=== PATIENT | female | born 1950 | race Hispanic/Latino ===

== ENCOUNTER → 2017-08-07 | Day surgery (SDC) | payer OTHER ==
[2017-08-04 12:36] LABS: BASOPHILS % 0.5 % (0.0-1.0); EOSINOPHILS # (AUTO) 0.2 (0.0-0.4); EOSINOPHILS % 4.1 % (0.0-6.0); HEMATOCRIT 42.5 % (34.2-44.1); HEMOGLOBIN 14.3 g/dL (12.0-16.0); MEAN CORPUSCULAR HEMOGLOBIN 31.8 pg (28-32); MEAN CORPUSCULAR HGB CONC 33.6 g/dL (31-35); MEAN CORPUSCULAR VOLUME 94.4 fL (81-99); MONOCYTES # (AUTO) 0.4 (0.2-0.8); MONOCYTES % 7.4 % (4.4-11.3); NEUTROPHILS # (AUTO) 3.2 (2.1-6.9); NEUTROPHILS % 53.8 % (38.7-80.0); PLATELET COUNT 199 x10e3/uL (140-360); RED CELL DISTRIBUTION WIDTH 13.3 % (11.7-14.4)
--- NOTE | 2017-08-04 14:47 | Diagnostic Imaging Report ---
PROCEDURE: Frontal and lateral views of the chest. COMPARISON: 01/04/2017 INDICATIONS: PREOPERATIVE CHEST XRAY FOR HALLUX VALGUS SURGERY FINDINGS: Lines/tubes: None. Lungs: The lungs are well inflated and clear. There is no evidence of pneumonia or pulmonary edema. Pleura: There is no pleural effusion or pneumothorax. Heart and mediastinum: The heart size is at the upper limits normal. Small hiatal hernia. Bones: No acute bony abnormality. Multilevel degenerative changes of the thoracic spine. Cholecystectomy clips IMPRESSION: 1. No acute cardiopulmonary disease. Dictated by: Tate Mariscal M.D. on 08/04/2017 at 14:48 Electronically approved by: Tate Mariscal M.D. on 08/04/2017 at 14:48
[~2017-08-07] MED LIST: BETAMETHASONE DISODIUM PHOS 6 MG/ML VIAL ONE; BUPIVACAINE HCL 0.5% INJ 30 ML VIAL INJ ONE; CEFAZOLIN SOD 2 GM/D5W 50ML 50 ML IV ONE; DEXAMETHASONE SOD PHOS INJ 4 MG/ML VIAL ONE; FENTANYL CITRATE/PF 100MCG/2 ML INJ ONE; KETOROLAC TROMETHAMINE 30 MG/ML VIAL ONE; LEVOTHYROXINE50 MCG PO; LIDOCAINE HCL 2% LOCAL INJ 5 ML SDV VIAL INJ ONE; MIDAZOLAM HCL 2 MG/2 ML VIAL ONE; ONDANSETRON HCL INJ 2 MG/ML VIAL ONE; PROPOFOL IV EMULSION 10 MG/ML 20 ML VIAL ONE; SEVOFLURANE INHAL SOLN 250 ML PEN BTL ONE; SIMVASTATIN20 MG PO
--- OUTSIDE RECORDS SUMMARY | 2017-08-07 07:08 | XMS REPORT ---
Author Author [facility] Address Unknown Phone Unavailable Care Team Providers [employer] Name Role Phone CHETANYESICA MORAN Unavailable Unavailable TERE JARA Unavailable Unavailable Problems This patient has no known problems. Allergies, Adverse Reactions, Alerts This patient has no known allergies or adverse reactions. Medications This patient has no known medications. Results Test Description Test Time Test Comments Text Results Atomic Results Result Comments CHEST 2 VIEWS [place] [address] Patient Name: KAYLENE IBANEZ MR #: [id number] : 1950 Age/Sex: 67/F Req #: [id number] Adm Physician: Ordered by: MARAL ROSS MD Report #: [id number] Location: OR Room/Bed: Procedure: [id number] DX/CHEST 2 VIEWS Exam Date: 08/04/17 Exam Time: 1245 REPORT STATUS: Signed PROCEDURE: Frontal and lateral views of the chest. COMPARISON: 01/04/2017 INDICATIONS: PREOPERATIVE CHEST XRAY FOR HALLUX VALGUS SURGERY FINDINGS: Lines/tubes: None. Lungs: The lungs are well inflated and clear. There is no evidence of pneumonia or pulmonary edema. Pleura: There is no pleural effusion or pneumothorax. Heart and mediastinum: The heart size is at the upper limits normal. Small hiatal hernia. Bones: No acute bony abnormality. Multilevel degenerative changes of the thoracic spine. Cholecystectomy clips IMPRESSION: 1. No acute cardiopulmonary disease. Dictated by: Micki Mariscal M.D. on 08/04/2017 at 14:48 Electronically approved by: Micki Mariscal M.D. on 08/04/2017 at 14:48 Dictated By: MICKI MARISCAL MD [id number] Transcribed By: JOURDAN on 08/04/17 1448 COPY TO: MARAL ROSS MD CHEST 2 VIEWS [facility] [address] [place] [address] Patient Name: KAYLENE IBANEZ MR #: [id number] : 1950 Age/Sex: 66/F Req #: [id number] Adm Physician: Ordered by: TERE JARA MD Report #: [id number] Location: OR Room/Bed: Procedure: [id number] DX/CHEST 2 VIEWS Exam Date: 01/04/17 Exam Time: 1440 REPORT STATUS: Signed PROCEDURE: Frontal and lateral views of the chest. COMPARISON: 05/16/16 INDICATIONS: PRE OP CYSTIC MASS OF LEFT BREAST FINDINGS: Lines/tubes: None. Lungs: The lungs are well inflated and clear. There is no evidence of pneumonia or pulmonary edema. Pleura: There is no pleural effusion or pneumothorax. Heart and mediastinum: The heart and the mediastinum are normal. Bones: No acute bony abnormality. IMPRESSION: 1. No acute cardiopulmonary disease. Dictated by: Wilian Newman M.D. on 01/04/2017 at 15:32 Electronically approved by: Wilian Newman M.D. on 01/04/2017 at 15:32 Dictated By: WILIAN NEWMAN MD 153 Transcribed By: JOURDAN on 01/04/17 153 COPY TO: TERE JARA MD
--- NOTE | 2017-08-07 10:58 | Operative Report ---
DATE OF PROCEDURE: August 07, 2017 PREOPERATIVE DIAGNOSIS: Hallux valgus deformity, right foot. POSTOPERATIVE DIAGNOSIS: Hallux valgus deformity, right foot. PROCEDURES 1. Michael bunionectomy, right foot. 2. Trigger-point cortisone injection. 3. Intraoperative fluoroscopy. 4. Application of posterior splint. ANESTHESIA: General LMA. HEMOSTASIS: Pneumatic tourniquet, right thigh, inflated to 350 mmHg. ESTIMATED BLOOD LOSS: Less than 5 mL. MATERIALS 1. A 2.0 cortical screw. 2. A 0.045 K-wire. INJECTABLES 1. Total of 10 mL of 8:2 mixture of 2% lidocaine plain and betamethasone. 2. Ten mL of 2% lidocaine plain as a postoperative block. COMPUTER INFORMATION SCIENCE PROFESSOR: None. INDICATIONS FOR PROCEDURE: Ms. Jarrell is a pleasant female, 67 years of age, complaining of pain and discomfort associated with her right foot. She has failed conservative treatment and needs surgical intervention. Denies any reservation. Risks and complications include but are not limited to deep vein thrombosis, pulmonary embolism, soft-tissue infection, osseous infection, recurrence of deformity, avascular necrosis and others. DESCRIPTION OF PROCEDURE: Under mild sedation, she was brought to the operating room and placed on the operating room table in the supine position. Following induction and administration of general LMA anesthesia by anesthesia service, a well-padded pneumatic tourniquet was placed on the patient's right thigh. Next, the distal right lower extremity was scrubbed, prepped and draped in the usual aseptic manner. The extremity was then elevated and exsanguinated, and the tourniquet was inflated to 350 mmHg. Attention was then directed to the dorsum of the right foot where a curvilinear longitudinal incision was created about the site overlying the same. The incision was then deepened utilizing combination of sharp and blunt dissection. Once at the level of the 1st metatarsophalangeal joint capsule, a linear capsulotomy was performed. Then subperiosteal plane dissection was then carried down, exposing the head of the 1st metatarsal. Medial bone shelf was transected utilizing an oscillating saw and passed from the operative site. Next, a chevron-like osteotomy was created from medial to lateral with the longer dorsal arm to accommodate for screw fixation. Next, the capital fragment was distracted, shifted laterally, impacted upon the 1st metatarsal shaft and fixated with the aforementioned hardware. Redundant medial bone shelf was then transected and passed from the operative site with an oscillating saw. Next, the area was copiously irrigated. Procedure: Intraoperative fluoroscopy: Intraoperative fluoroscopy was utilized throughout the procedure to assess for hardware placement and anatomical correction of the deformity. Procedure: Trigger-point cortisone injection was then infiltrated to the surgical site to decrease postoperative inflammatory response. Compressive dressings were applied after the incision was closed in layers. Finally, a posterior splint was applied to protect the surgical site. She was then subsequently extubated and transferred to the PACU with vital signs stable. Also, the tourniquet was deflated at that time. Job#: [id number]
== END | disposition home or self-care (01) ==
LOC: OR 07:06
PROVIDERS: ATTEND Podiatrist Foot Surgery
DX: M20.11 Hallux valgus (acquired), right foot (principal); Z01.810 Encounter for preprocedural cardiovascular examination; Z01.812 Encounter for preprocedural laboratory examination; Z01.811 Encounter for preprocedural respiratory examination
CPT/HCPCS: 28296; 36415; 71046; 76001; 85025; 93005; C1713; J0720; J1100; J1885; J2001; J2250; J2405

== ENCOUNTER → 2019-03-21 | Day surgery (SDC) | payer MEDICARE ==
[2019-03-20 10:40] LABS: BASOPHILS % 0.4 % (0.0-1.0); EOSINOPHILS # (AUTO) 0.2 (0.0-0.4); EOSINOPHILS % 4.5 % (0.0-6.0); HEMATOCRIT 42.7 % (34.2-44.1); HEMOGLOBIN 14.2 g/dL (12.0-16.0); LYMPHOCYTES # (AUTO) 1.5 (1.0-3.2); MEAN CORPUSCULAR HEMOGLOBIN 31.5 pg (28-32); MEAN CORPUSCULAR HGB CONC 33.3 g/dL (31-35); MEAN CORPUSCULAR VOLUME 94.7 fL (81-99); MONOCYTES # (AUTO) 0.4 (0.2-0.8); MONOCYTES % 7.7 % (4.4-11.3); NEUTROPHILS # (AUTO) 2.6 (2.1-6.9); NEUTROPHILS % 56.2 % (38.7-80.0); PLATELET COUNT 190 x10e3/uL (140-360); RED BLOOD COUNT 4.51 x10e6/uL (3.6-5.1); RED CELL DISTRIBUTION WIDTH 12.6 % (11.7-14.4)
[~2019-03-21] MED LIST changes: -BETAMETHASONE DISODIUM PHOS 6 MG/ML VIAL ONE; -BUPIVACAINE HCL 0.5% INJ 30 ML VIAL INJ ONE; -CEFAZOLIN SOD 2 GM/D5W 50ML 50 ML IV ONE; -DEXAMETHASONE SOD PHOS INJ 4 MG/ML VIAL ONE; -KETOROLAC TROMETHAMINE 30 MG/ML VIAL ONE; -LIDOCAINE HCL 2% LOCAL INJ 5 ML SDV VIAL INJ ONE; -ONDANSETRON HCL INJ 2 MG/ML VIAL ONE; -PROPOFOL IV EMULSION 10 MG/ML 20 ML VIAL ONE; +PROPOFOL IV EMULSION 10 MG/ML 50 ML VIAL ONE; -SEVOFLURANE INHAL SOLN 250 ML PEN BTL ONE
[2019-03-21 09:05] VITALS: BP 145/53
== END | disposition home or self-care (01) ==
LOC: OR 06:18
PROVIDERS: ATTEND Internal Medicine Gastroenterology
DX: R10.13 Epigastric pain (principal); K30 Functional dyspepsia; Z71.3 Dietary counseling and surveillance; E66.3 Overweight; Z68.26 Body mass index [BMI] 26.0-26.9, adult; Z01.810 Encounter for preprocedural cardiovascular examination; Z01.812 Encounter for preprocedural laboratory examination; K21.9 Gastro-esophageal reflux disease without esophagitis; E78.00 Pure hypercholesterolemia, unspecified; E03.9 Hypothyroidism, unspecified; K29.70 Gastritis, unspecified, without bleeding; K29.50 Unspecified chronic gastritis without bleeding
CPT/HCPCS: 36415; 43239; 85025; 88305; 88312; 93005; J2250; J2704; J3010; 43235

== ENCOUNTER → 2020-09-24 | Day surgery (SDC) | payer MEDICARE ==
[2020-09-21 10:26] LABS: BASOPHILS % 0.5 % (0.0-1.0); EOSINOPHILS # (AUTO) 0.2 (0.0-0.4); EOSINOPHILS % 3.2 % (0.0-6.0); HEMATOCRIT 38.9 % (34.2-44.1); HEMOGLOBIN 12.8 g/dL (12.0-16.0); LYMPHOCYTES # (AUTO) 1.6 (1.0-3.2); LYMPHOCYTES % 26.9 % (18.0-39.1); MEAN CORPUSCULAR HEMOGLOBIN 31.3 pg (28-32); MEAN CORPUSCULAR HGB CONC 32.9 g/dL (31-35); MEAN CORPUSCULAR VOLUME 95.1 fL (81-99); MONOCYTES # (AUTO) 0.5 (0.2-0.8); MONOCYTES % 7.8 % (4.4-11.3); NEUTROPHILS # (AUTO) 3.6 (2.1-6.9); NEUTROPHILS % 61.3 % (38.7-80.0); PLATELET COUNT 179 x10e3/uL (140-360); RED BLOOD COUNT 4.09 x10e6/uL (3.6-5.1); RED CELL DISTRIBUTION WIDTH 12.4 % (11.7-14.4)
[~2020-09-24] MED LIST changes: -FENTANYL CITRATE/PF 100MCG/2 ML INJ ONE; +LIDOCAINE HCL 2% LOCAL INJ 5 ML SDV VIAL INJ ONE; +OMEPRAZOLE40 MG PO; +PROPOFOL IV EMULSION 10 MG/ML 20 ML VIAL ONE; -PROPOFOL IV EMULSION 10 MG/ML 50 ML VIAL ONE
[2020-09-24 12:20] VITALS: BP 128/61
== END | disposition home or self-care (01) ==
LOC: OR 07:36
PROVIDERS: ATTEND Internal Medicine Gastroenterology
DX: R13.10 Dysphagia, unspecified (principal); K29.40 Chronic atrophic gastritis without bleeding; K21.9 Gastro-esophageal reflux disease without esophagitis; K44.9 Diaphragmatic hernia without obstruction or gangrene; K31.89 Other diseases of stomach and duodenum; Z71.3 Dietary counseling and surveillance; E66.3 Overweight; E03.9 Hypothyroidism, unspecified; E78.00 Pure hypercholesterolemia, unspecified; Z01.810 Encounter for preprocedural cardiovascular examination; Z01.812 Encounter for preprocedural laboratory examination; Z68.26 Body mass index [BMI] 26.0-26.9, adult
CPT/HCPCS: 36415; 43239; 85025; 93005; J2001; J2250; J2704

== ENCOUNTER → 2025-01-09 | Day surgery (SDC) | payer MEDICARE ==
[2025-01-02 09:31] LABS: BASOPHILS % 0.6 % (0.0-1.0); EOSINOPHILS % 4.8 % (0.0-6.0); LYMPHOCYTES % 32.1 % (18.0-39.1); MONOCYTES % 7.1 % (4.4-11.3); NEUTROPHILS % 55.0 % (38.7-80.0); RED CELL DISTRIBUTION WIDTH 13.1 % (11.7-14.4)
[~2025-01-09] MED LIST changes: +ALENDRONATE SOD70 MG PO; +LACTATED RINGER'S 1,000 ML ONE; -MIDAZOLAM HCL 2 MG/2 ML VIAL ONE; +VITAMIN B-121000 MCG PO
[2025-01-09 09:17] VITALS: TEMP 98.7
[2025-01-09 09:45] VITALS: BP 154/90; PULSE 80; RESP 18; O2SAT 99
== END | disposition home or self-care (01) ==
LOC: OR 06:07
PROVIDERS: ATTEND Internal Medicine Gastroenterology
DX: Z09 Encounter for follow-up examination after completed treatment for conditions other than malignant neoplasm (principal); Z86.0100 Personal history of colon polyps, unspecified; K64.8 Other hemorrhoids; K44.9 Diaphragmatic hernia without obstruction or gangrene; K21.9 Gastro-esophageal reflux disease without esophagitis; E78.5 Hyperlipidemia, unspecified; E03.9 Hypothyroidism, unspecified; Z78.9 Other specified health status; Z01.810 Encounter for preprocedural cardiovascular examination; Z01.812 Encounter for preprocedural laboratory examination; Z68.26 Body mass index [BMI] 26.0-26.9, adult; Z71.3 Dietary counseling and surveillance; Z79.899 Other long term (current) drug therapy
CPT/HCPCS: 36415; 45378; 85025; 93005; J2003; J2704; J7121